=== PATIENT | male | born 1985 | race Two or more races ===

== ENCOUNTER 2020-04-27 10:20 | Emergency (ER) | payer SELFPAY ==
[~2020-04-27] VITALS: Ht 172.7 cm; Wt 817.4 kg
[~2020-04-27 10:20] MED LIST: ALBU0.0939 IH; ALBU2SYR86 PO
[2020-04-27 10:26] VITALS: BP 135/80
--- NOTE | 2020-04-27 10:36 | NUR ---
Patient taken to x-ray via wheelchair by tech.
--- NOTE | 2020-04-27 10:49 | NUR ---
Patient ambulated to bed 4. RN evaluating patient at bedside.
--- NOTE | 2020-04-27 10:50 | NUR ---
34 Y/O MALE FROM HOME C/O LT SHOULDER PAIN S/P FALLING OFF SKATEBOARD THIS MORNING. SLIGHT DEFORMITY NOTED TO LT SHOULDER. ABRASIONS TO LT ELBOW, SHOULDER, AND BACK NOTED. PT STATES HE IS UNABLE TO MOVE SHOULDER, + DISTAL PULSES. SKIN WARM, DRY, INTACT. SITTING UPRIGHT AWAKE AND ALERT. VSS MEDHX: ASTHMA
[2020-04-27] MEDS ORDERED: KETOROLAC 60 MG/2 ML VIAL IM ONE (10:55)
[2020-04-27] MEDS ORDERED: HYDROcodone/APAP 5/325 MG 1 TAB TAB PO ONE (10:55)
--- NOTE | 2020-04-27 11:11 | NUR ---
DR BARROS AT BEDSIDE EXAMINING PT
[2020-04-27] MEDS ORDERED: BACITRACIN OINT 500 UNITS/GM PKT TP ONE ×2 (11:13→11:15)
--- NOTE | 2020-04-27 11:20 | NUR ---
ophthalmology technician at bedside.
--- NOTE | 2020-04-27 11:54 | NUR ---
SLING PLACED TO LT SHOULDER, PT STATES DECREASE IN PAIN AT THIS TIME, 2/10 TOLERABLE PAIN
[2020-04-27 12:40] VITALS: BP 135/80
--- NOTE | 2020-04-27 12:40 | NUR ---
Patient discharged with v/s stable. Written and verbal after care instructions given and explained. Patient alert, oriented and verbalized understanding of instructions. Ambulatory with steady gait. All questions addressed prior to discharge. ID band removed. Patient advised to follow up with PMD. Rx of MOTRIN 600MG AND NORCO 5MG-325MG given. Patient educated on indication of medication including possible reaction and side effects. Opportunity to ask questions provided and answered.
== END 2020-04-27 12:40 | disposition home or self-care (01) ==
LOC: MED 10:20
DX: S43.102A Unspecified dislocation of left acromioclavicular joint, initial encounter (principal); S50.02XA Contusion of left elbow, initial encounter; I10 Essential (primary) hypertension; J45.909 Unspecified asthma, uncomplicated; F17.210 Nicotine dependence, cigarettes, uncomplicated; Z79.899 Other long term (current) drug therapy; V00.131A Fall from skateboard, initial encounter; Y93.89 Activity, other specified; Y92.89 Other specified places as the place of occurrence of the external cause; Y99.8 Other external cause status
CPT/HCPCS: 73030; 73080; 96372; 99284; J1885; Q0092

== ENCOUNTER 2020-06-09 19:14 | Emergency (ER) | payer SELFPAY ==
[~2020-06-09] VITALS: Ht 175.3 cm; Wt 73.9 kg
[2020-06-09 19:25] VITALS: BP 160/90
--- NOTE | 2020-06-09 19:29 | NUR ---
PT AMBULATED TO RESTROOM TO PROVIDE UA.
--- NOTE | 2020-06-09 19:30 | NUR ---
UA COLLECTED AND LEFT AT BEDSIDE. PT AMBULATED TO BED 4 WITH STEADY GAIT.
[2020-06-09] MEDS ORDERED: AZITHROMYCIN 250 MG TAB PO ONE (19:35)
[2020-06-09] MEDS ORDERED: NACL 0.9% 1,000 ML IV ONE (19:35)
--- NOTE | 2020-06-09 19:35 | NUR ---
Dr. Paulino examining patient.
[2020-06-09] MEDS ORDERED: cefTRIAXone 1,000 MG VIAL ONE (20:05)
[2020-06-09] MEDS ORDERED: cefTRIAXone 250 MG VIAL ONE (20:18)
[2020-06-09 20:26] LABS: APPEARANCE,URINE CLEAR (CLEAR); BILIRUBIN,URINE 1+ (NEGATIVE); BLOOD, URINE 3+ (NEGATIVE); LEUKOCYTE ESTERASE ,URINE 2+ (NEGATIVE); NITRITE, URINE NEGATIVE (NEGATIVE); UGLUCOSE NEGATIVE (NEGATIVE)
[2020-06-09 20:42] LABS: COLOR,URINE AMBER (YELLOW); WBC,URINE 20-60 /HPF (0-5)
[2020-06-09 20:43] LABS: RBC,URINE 50-80 /HPF (0-5)
--- NOTE | 2020-06-09 21:35 | NUR ---
IV removed, catheter intact and site benign. Applied folded 4x4 gauze and tape to stop bleeding.
[2020-06-09 21:37] VITALS: BP 160/90
--- NOTE | 2020-06-09 21:37 | NUR ---
Patient discharged with v/s stable. Written and verbal after care instructions given and explained. Patient alert, oriented and verbalized understanding of instructions. Ambulatory with steady gait. All questions addressed prior to discharge. ID band removed. Patient advised to follow up with PMD. Rx of PYRIDUM given. Patient educated on indication of medication including possible reaction and side effects. Opportunity to ask questions provided and answered.
== END 2020-06-09 21:37 | disposition home or self-care (01) ==
LOC: MED 19:14
DX: R30.0 Dysuria (principal); F17.210 Nicotine dependence, cigarettes, uncomplicated; I10 Essential (primary) hypertension; J45.909 Unspecified asthma, uncomplicated; Z79.899 Other long term (current) drug therapy
CPT/HCPCS: 36415; 81001; 87086; 96361; 96365; 99284; J0696; J7030

== ENCOUNTER 2021-12-15 18:18 | Emergency (ER) | payer OTHER ==
[~2021-12-15] VITALS: Ht 172.7 cm; Wt 82.6 kg
[2021-12-15 18:36] VITALS: BP 142/77
--- NOTE | 2021-12-15 18:55 | NUR ---
20G IV ESTABLISHED TO LEFT AC, LABS DRAWN AND HANDED TO EXTENSION EDUCATOR.
[2021-12-15] MEDS ORDERED: NACL 0.9% 1,000 ML IV ONE (19:00)
[2021-12-15 19:09] LABS: BASOPHILS % (AUTO) 0.5 % (0.0-2.0); EOSINOPHILS # (AUTO) 0.6 K/uL (0-0.4); EOSINOPHILS % (AUTO) 6.4 % (0.0-4.0); HEMATOCRIT 44.7 % (36-52); HEMOGLOBIN 15.4 g/dL (12.0-18.0); LYMPHOCYTES # (AUTO) 2.6 K/uL (2.0-11.5); LYMPHOCYTES % (AUTO) 29.3 % (20.5-51.1); MEAN CORPUSCULAR HEMOGLOBIN 29 pg (27-31); MEAN CORPUSCULAR HGB CONC 34 g/dL (33-37); MEAN CORPUSCULAR VOLUME 85.4 fL (80-94); MONOCYTES # (AUTO) 0.7 K/uL (0.8-1.0); MONOCYTES % (AUTO) 8.4 % (1.7-9.3); NEUTROPHILS # (AUTO) 4.9 K/uL (1.8-7.7); NEUTROPHILS % (AUTO) 55.4 % (42.2-75.2); PLATELET COUNT (AUTO) 387 K/uL (140-450); RED BLOOD CELL COUNT(AUTO) 5.23 MIL/uL (4.20-6.10); RED CELL DISTRIBUTION WIDTH 12.7 % (11.6-13.7); WHITE BLOOD COUNT (AUTO) 8.8 K/uL (4.8-10.8)
--- NOTE | 2021-12-15 19:10 | NUR ---
36/M PRESENTS TO ED WITH C/O LEFT LEG PAIN X1 WEEK. PATIENT STATES PAIN, REDNESS AND RASH DEVELOPED ON TOP OF HIS FOOT. STATING HE BEGAN HAVING REDNESS, TENDERNESS AND SWELLING TO HIS LOWER LEG, WORSENING IN THE PAST 3 DAYS. PATIENT REPORTS 5/10 PAIN THAT WORSENS WITH TOUCH. LEG IS RED, +3 EDEMA AND IS TENDER TO TOUCH. PATIENT DENIES FEVERS, CP, CHILLS, N/V/D AND SOB.
[2021-12-15 19:20] LABS: ANION GAP 13.2 (8-16); CARBON DIOXIDE 28.3 mmol/L (21-32); CREATININE 1.1 mg/dL (0.6-1.3); POTASSIUM 3.5 mmol/L (3.5-5.1)
[2021-12-15] MEDS ORDERED: LOTC TP (19:20)
[2021-12-15] MEDS ORDERED: CEPH-588 PO (19:20)
[2021-12-15 19:27] VITALS: BP 135/89
--- NOTE | 2021-12-15 19:33 | NUR ---
Pt report given to LIBERTAD RAY. Transfer of care at this time.
--- NOTE | 2021-12-15 20:30 | NUR ---
Patient discharged with v/s stable. Written and verbal after care instructions given and explained. Patient alert, oriented and verbalized understanding of instructions. Ambulatory with steady gait. All questions addressed prior to discharge. ID band removed. Patient advised to follow up with PMD. Rx of KELFEX & LOTRIMIN % given. Patient educated on indication of medication including possible reaction and side effects. Opportunity to ask questions provided and answered.
== END 2021-12-15 20:30 | disposition home or self-care (01) ==
LOC: MED 18:18
DX: B35.3 Tinea pedis (principal); L03.116 Cellulitis of left lower limb; J45.909 Unspecified asthma, uncomplicated; I10 Essential (primary) hypertension; Z79.899 Other long term (current) drug therapy
CPT/HCPCS: 36415; 80048; 85025; 86140; 93971; 96360; 99284; J7030; Q0092

== ENCOUNTER 2023-06-25 04:55 | Emergency (ER) | payer OTHER ==
[~2023-06-25] VITALS: Ht 175.3 cm; Wt 83.9 kg
[~2023-06-25 04:55] MED LIST changes: +CEPH-588 PO; +LOTC TP
[2023-06-25 04:56] VITALS: BP 154/90; PULSE 100; RESP 19; TEMP 98.1; O2SAT 95
[2023-06-25] MEDS ORDERED: ALBUTEROL SULFATE/IPRATROPIU 3 ML SOL IH ONE ×2 (05:15→06:00)
[2023-06-25] MEDS ORDERED: predniSONE 20 MG TAB PO ONE (05:15)
[2023-06-25 05:26] VITALS: PULSE 104; RESP 15; O2SAT 98
[2023-06-25 06:07] VITALS: PULSE 92; RESP 20; O2SAT 95
[2023-06-25] MEDS ORDERED: PRED20TA5 PO (06:14)
[2023-06-25] MEDS ORDERED: ALBU0.0912 INH (06:14)
[2023-06-25] MEDS ORDERED: FLUT1DSK2 IH (06:17)
[2023-06-25 06:20] VITALS: BP 154/90; PULSE 104; RESP 15; TEMP 98.1; O2SAT 98
== END 2023-06-25 06:20 | disposition home or self-care (01) ==
LOC: MED 04:55
DX: J45.901 Unspecified asthma with (acute) exacerbation (principal); R06.02 Shortness of breath; R06.2 Wheezing; R05.9 Cough, unspecified; Z79.899 Other long term (current) drug therapy
CPT/HCPCS: 94640; 99283; J7512

== ENCOUNTER 2023-11-13 23:35 | Emergency (ER) | payer OTHER ==
[~2023-11-13] VITALS: Ht 175.3 cm; Wt 87.1 kg
[~2023-11-13 23:35] MED LIST changes: +ALBU0.0912 INH; +FLUT1DSK2 IH; +PRED20TA5 PO
[2023-11-13 23:44] VITALS: BP 150/106; PULSE 94; RESP 16; TEMP 97.8; O2SAT 99
[2023-11-14 00:24] LABS: BASOPHILS # (AUTO) 0.1 K/uL (0.00-0.22); BASOPHILS % (AUTO) 0.6 % (0.0-2.0); EOSINOPHILS # (AUTO) 0.4 K/uL (0-0.4); EOSINOPHILS % (AUTO) 4.2 % (0.0-4.0); HEMATOCRIT 49.7 % (36-52); HEMOGLOBIN 16.9 g/dL (12.0-18.0); LYMPHOCYTES # (AUTO) 3.1 K/uL (2.0-11.5); LYMPHOCYTES % (AUTO) 31.5 % (20.5-51.1); MEAN CORPUSCULAR HEMOGLOBIN 29 pg (27-31); MEAN CORPUSCULAR HGB CONC 34 g/dL (33-37); MEAN CORPUSCULAR VOLUME 85.1 fL (80-94); MONOCYTES # (AUTO) 0.8 K/uL (0.8-1.0); MONOCYTES % (AUTO) 8.3 % (1.7-9.3); NEUTROPHILS # (AUTO) 5.5 K/uL (1.8-7.7); NEUTROPHILS % (AUTO) 55.4 % (42.2-75.2); PLATELET COUNT (AUTO) 370 K/uL (140-450); RED BLOOD CELL COUNT(AUTO) 5.84 MIL/uL (4.20-6.10); RED CELL DISTRIBUTION WIDTH 13.2 % (11.6-13.7)
[2023-11-14 00:41] LABS: ANION GAP 15.1 (8-16); CALCIUM 9.5 mg/dL (8.5-10.1); CARBON DIOXIDE 27.6 mmol/L (21-32); POTASSIUM 3.7 mmol/L (3.5-5.1)
[2023-11-14 00:44] LABS: ACETAMINOPHEN 28.7 ug/ml (10-30); ALANINE AMINOTRANSFERASE 59 U/L (12-78); ALBUMIN 3.9 g/dL (3.4-5.0); ALCOHOL, BLOOD < 3 mg/dL (<10); ALKALINE PHOSPHATASE 96 U/L (50-136); ASPARTATE AMINOTRANSFERASE 34 U/L (15-37); BILIRUBIN,DIRECT 0.1 mg/dL (0.0-0.3); SALICYLATE 22.7 mg/dL (2.8-20.0); TOTAL BILIRUBIN 0.2 mg/dL (0.0-1.0)
[2023-11-14 01:23] LABS: AMPHETAMINE, URINE POSITIVE ng/ml (NEG <=1000); BARBITURATE, URINE NEGATIVE ng/ml (NEG <=200); BENZODIAZEPINE, URINE NEGATIVE ng/mL (NEG <=200); CANNABINOID, URINE NEGATIVE ng/mL (NEG <=50); COCAINE, URINE NEGATIVE ng/mL (NEG <=300); OPIATE, URINE NEGATIVE ng/mL (NEG <=2000); PHENCYCLIDINE SCREEN,URINE NEGATIVE ng/mL (NEG <=25)
[2023-11-14 04:09] VITALS: O2SAT 99
[2023-11-14] MEDS ORDERED: NACL 0.9% 1,000 ML IV ONE (04:55)
[2023-11-14 06:15] VITALS: BP 128/77; PULSE 88; RESP 21
[2023-11-14 06:18] VITALS: O2SAT 97
[2023-11-14 07:04] LABS: ALBUMIN 3.3 g/dL (3.4-5.0); TOTAL BILIRUBIN 0.2 mg/dL (0.0-1.0); TOTAL PROTEIN, SERUM 7.9 g/dL (6.4-8.2)
[2023-11-14 07:07] LABS: SALICYLATE 28.8 mg/dL (2.8-20.0)
[2023-11-14 07:08] LABS: ACETAMINOPHEN 22.2 ug/ml (10-30)
[2023-11-14 07:15] LABS: BILIRUBIN,DIRECT 0.1 mg/dL (0.0-0.3)
== END 2023-11-14 08:10 | disposition home or self-care (01) ==
LOC: MED 23:35
DX: T43.614A Poisoning by caffeine, undetermined, initial encounter (principal); T39.1X4A Poisoning by 4-Aminophenol derivatives, undetermined, initial encounter; F43.20 Adjustment disorder, unspecified; J45.909 Unspecified asthma, uncomplicated; Z79.899 Other long term (current) drug therapy; Z79.2 Long term (current) use of antibiotics; Y92.89 Other specified places as the place of occurrence of the external cause
CPT/HCPCS: 36415; 80048; 80076; 80305; 85025; 96360; 99285; G0480; G0482; J7030

== ENCOUNTER 2023-11-18 01:18 | Emergency (ER) | payer OTHER ==
[~2023-11-18] VITALS: Ht 175.3 cm; Wt 87.1 kg
[2023-11-18 01:25] VITALS: BP 160/100; PULSE 114; RESP 28; TEMP 98.8; O2SAT 96
[2023-11-18] MEDS ORDERED: ALBUTEROL 0.083% 2.5 MG/3 ML NEBU INH ONE (01:45)
[2023-11-18] MEDS ORDERED: ALBUTEROL SULFATE/IPRATROPIU 3 ML SOL IH ONE ×2 (01:45→03:05)
[2023-11-18 01:50] VITALS: PULSE 124; RESP 32; O2SAT 97
[2023-11-18] MEDS ORDERED: NACL 0.9% 1,000 ML IV ONE (01:50)
[2023-11-18] MEDS ORDERED: methylPREDNISolone SS 125 MG in WATER STERILE 2 ML IV ONE (01:50)
[2023-11-18] MEDS ORDERED: methylPREDNISolone SS 125 MG/2 ML VIAL ONE (02:09)
[2023-11-18] MEDS ORDERED: ALBU0.0912 IH (03:03)
[2023-11-18] MEDS ORDERED: PRED20TA5 PO (03:03)
[2023-11-18 03:17] VITALS: PULSE 101; RESP 22; O2SAT 95
[2023-11-18 03:44] VITALS: BP 125/69; PULSE 101; RESP 22; TEMP 98; O2SAT 98
[2023-11-19] MEDS ORDERED: OSELTAMIVIR PHOSPHATE 75 MG CAP ONE (20:16)
== END 2023-11-18 03:44 | disposition home or self-care (01) ==
LOC: MED 01:18
DX: J45.901 Unspecified asthma with (acute) exacerbation (principal); J45.909 Unspecified asthma, uncomplicated; Z79.899 Other long term (current) drug therapy; F17.210 Nicotine dependence, cigarettes, uncomplicated; Z79.2 Long term (current) use of antibiotics
CPT/HCPCS: 71045; 94640; 96361; 96374; 99291; J2930; J7030; J7613; Q0092

== ENCOUNTER 2023-11-19 03:37 | Inpatient (IN) | payer OTHER ==
[~2023-11-19] VITALS: Ht 175.3 cm; Wt 90.7 kg
[2023-11-19] VITALS (19 sets, daily range): BP systolic 116–149; BP diastolic 73–98; PULSE 92–140; RESP 18–34; TEMP 97.2–98.2; O2SAT 91–100
[~2023-11-19 03:37] MED LIST changes: +ALBU0.0912 IH
[2023-11-19] MEDS ORDERED: methylPREDNISolone SS 125 MG/2 ML VIAL IVP ONE (03:45)
[2023-11-19] MEDS ORDERED: ALBUTEROL 0.083% 2.5 MG/3 ML NEBU INH ONE (03:45)
[2023-11-19] MEDS ORDERED: IPRATROPIUM 0.02% 0.5 MG/2.5 ML NEBU INH ONE ×3 (03:45→06:57)
[2023-11-19] MEDS ORDERED: DIAZEPAM PFS 10 MG/2 ML SYR IVP ONE (04:15)
[2023-11-19] MEDS ORDERED: NACL 0.9% 2,000 ML IV ONE (04:30)
[2023-11-19] MEDS ORDERED: cefTRIAXone 1,000 MG VIAL ONE (04:45)
[2023-11-19] MEDS ORDERED: ACETAMINOPHEN 325 MG TAB PO ONE (04:45)
[2023-11-19 05:07] LABS: BASOPHILS % (AUTO) 0.2 % (0.0-2.0); HEMOGLOBIN 14.6 g/dL (12.0-18.0); LYMPHOCYTES # (AUTO) 0.6 K/uL (2.0-11.5); MEAN CORPUSCULAR HEMOGLOBIN 29 pg (27-31); MEAN CORPUSCULAR HGB CONC 34 g/dL (33-37); MEAN CORPUSCULAR VOLUME 85.1 fL (80-94); MONOCYTES # (AUTO) 0.5 K/uL (0.8-1.0); MONOCYTES % (AUTO) 5.7 % (1.7-9.3); NEUTROPHILS # (AUTO) 8.2 K/uL (1.8-7.7); PLATELET COUNT (AUTO) 329 K/uL (140-450); RED BLOOD CELL COUNT(AUTO) 5.05 MIL/uL (4.20-6.10); WHITE BLOOD COUNT (AUTO) 9.3 K/uL (4.8-10.8)
[2023-11-19 05:20] LABS: ALBUMIN 3.4 g/dL (3.4-5.0); ANION GAP 13.7 (8-16); CALCIUM 8.4 mg/dL (8.5-10.1); CARBON DIOXIDE 26.4 mmol/L (21-32); CREATININE 0.9 mg/dL (0.6-1.3); TOTAL BILIRUBIN 0.4 mg/dL (0.0-1.0); TOTAL PROTEIN, SERUM 8.4 g/dL (6.4-8.2)
[2023-11-19 05:22] LABS: POTASSIUM 4.1 mmol/L (3.5-5.1)
[2023-11-19 05:26] LABS: NEUTROPHILS % (AUTO) 88.1 % (42.2-75.2)
[2023-11-19 05:37] LABS: LACTIC ACID 2.7 mmol/L (0.4-2.0)
[2023-11-19] MEDS ORDERED: LEVALBUTEROL 0.63 MG/3 ML NEBU INH ONE ×2 (06:55→06:57)
[2023-11-19] MEDS ORDERED: MAG SULF 2000 MG/WATER PREMIX 50 ML IV ONE (07:10)
[2023-11-19] MEDS ORDERED: guaiFENesin DM SUGAR FREE 100 MG/5 ML UDBTL PO PRN (07:10)
[2023-11-19] MEDS ORDERED: TERBUTALINE 1 MG/ML VIAL SUBQ ONE (07:15)
[2023-11-19] MEDS ORDERED: BUDESONIDE 0.25 MG/2 ML NEBU INH ONE (07:30)
[2023-11-19] MEDS ORDERED: DEXAMETHASONE 10 MG/ML VIAL IVP ONE (07:30)
[2023-11-19] MEDS ORDERED: LORazepam 2 MG/ML VIAL IVP ONE (07:35)
[2023-11-19] MEDS ORDERED: ALBUTEROL SULFATE/IPRATROPIU 3 ML SOL IH PRN (07:35)
[2023-11-19] MEDS ORDERED: ONDANSETRON 4 MG/2 ML VIAL IVP PRN (07:40)
[2023-11-19] MEDS ORDERED: MORPHINE SULFATE 2 MG/ML SYR IVP PRN (07:40)
[2023-11-19] MEDS ORDERED: ACETAMINOPHEN 325 MG TAB PO PRN (07:40)
[2023-11-19] MEDS ORDERED: ALBUTEROL 0.083% 2.5 MG/3 ML NEBU INH PRN (07:40)
[2023-11-19 07:42] LABS: BLOOD GAS BASE EXCESS -3.8 mmol/L (-2.0-2.0); BLOOD GAS PCO2 32.8 mmHg (35-45); BLOOD GAS PH 7.402 (7.35-7.45); BLOOD GAS PO2 157.4 mmHg (75-100)
[2023-11-19] MEDS ORDERED: ENOXAPARIN 40 MG/0.4 ML SYR SUBQ ONE (07:55)
[2023-11-19] MEDS: DEXT 5% /NACL 0.9% 1,000 ML IV SCH ×2 (08:00→20:07)
[2023-11-19 08:17] LABS: ALBUMIN 3.3 g/dL (3.4-5.0); BILIRUBIN,DIRECT 0.1 mg/dL (0.0-0.3); TOTAL BILIRUBIN 0.2 mg/dL (0.0-1.0); TOTAL PROTEIN, SERUM 7.9 g/dL (6.4-8.2)
[2023-11-19 08:32] LABS: FLU B ANTIGEN NEGATIVE (NEGATIVE)
[2023-11-19 08:33] LABS: FLU A ANTIGEN POSITIVE (NEGATIVE)
[2023-11-19] MEDS ORDERED: OSELTAMIVIR PHOSPHATE 75 MG CAP PO ONE (08:40)
[2023-11-19] MEDS: OSELTAMIVIR PHOSPHATE 75 MG CAP PO SCH ×2 (09:00→20:17)
[2023-11-19] MEDS: ENOXAPARIN 40 MG/0.4 ML SYR SUBQ SCH (09:21)
[2023-11-19] MEDS: AZITHROMYCIN 250 MG in DEXTROSE 5% 250 ML IV SCH (09:36)
[2023-11-19] MEDS: ALBUTEROL SULFATE/IPRATROPIU 3 ML SOL IH SCH ×4 (11:18→23:08)
[2023-11-19] MEDS: methylPREDNISolone SS 40 MG/ML VIAL IVP SCH ×2 (12:00→17:08)
[2023-11-19] MEDS ORDERED: methylPREDNISolone SS 40 MG in WATER STERILE 1 ML IM ONE (12:00)
[2023-11-19] MEDS ORDERED: methylPREDNISolone SS 40 MG in WATER STERILE 1 ML IV SCH (12:00)
[2023-11-19] MEDS ORDERED: IPRATROPIUM 0.02% 0.5 MG/2.5 ML NEBU INH SCH (13:00)
[2023-11-19] MEDS ORDERED: ALBUTEROL 0.083% 2.5 MG/3 ML NEBU INH SCH (13:00)
[2023-11-19 16:47] LABS: APPEARANCE,URINE CLEAR (CLEAR); BILIRUBIN,URINE NEGATIVE (NEGATIVE); BLOOD, URINE NEGATIVE (NEGATIVE); COLOR,URINE YELLOW (YELLOW); LEUKOCYTE ESTERASE ,URINE NEGATIVE (NEGATIVE); NITRITE, URINE NEGATIVE (NEGATIVE); PROTEIN,URINE NEGATIVE (NEGATIVE); UGLUCOSE NEGATIVE (NEGATIVE); UROBILINOGEN,URINE 0.2 EU/dL (0.2 - 1)
[2023-11-19 18:14] LABS: AMPHETAMINE, URINE POSITIVE ng/ml (NEG <=1000); BARBITURATE, URINE NEGATIVE ng/ml (NEG <=200); BENZODIAZEPINE, URINE POSITIVE ng/mL (NEG <=200); CANNABINOID, URINE NEGATIVE ng/mL (NEG <=50); COCAINE, URINE NEGATIVE ng/mL (NEG <=300); OPIATE, URINE NEGATIVE ng/mL (NEG <=2000); PHENCYCLIDINE SCREEN,URINE NEGATIVE ng/mL (NEG <=25)
[2023-11-20] VITALS (17 sets, daily range): BP systolic 118–145; BP diastolic 64–84; PULSE 71–123; RESP 16–26; TEMP 97–98.6; O2SAT 95–100
[2023-11-20] MEDS: methylPREDNISolone SS 40 MG/ML VIAL IVP SCH ×4 (00:20→18:00)
[2023-11-20] MEDS: ALBUTEROL SULFATE/IPRATROPIU 3 ML SOL IH SCH ×5 (03:26→18:57)
[2023-11-20 06:45] LABS: ALBUMIN 3.1 g/dL (3.4-5.0); ANION GAP 11.7 (8-16); CALCIUM 8.6 mg/dL (8.5-10.1); CARBON DIOXIDE 28.5 mmol/L (21-32); CREATININE 0.7 mg/dL (0.6-1.3); MAGNESIUM 2.1 mg/dL (1.8-2.4); POTASSIUM 4.2 mmol/L (3.5-5.1); TOTAL BILIRUBIN 0.2 mg/dL (0.0-1.0); TOTAL PROTEIN, SERUM 7.9 g/dL (6.4-8.2)
[2023-11-20] MEDS: OSELTAMIVIR PHOSPHATE 75 MG CAP PO SCH (08:07)
[2023-11-20] MEDS: ENOXAPARIN 40 MG/0.4 ML SYR SUBQ SCH (08:08)
[2023-11-20] MEDS: AZITHROMYCIN 250 MG in DEXTROSE 5% 250 ML IV SCH (08:10)
[2023-11-20 08:56] LABS: BASOPHILS % (AUTO) 0.1 % (0.0-2.0); HEMATOCRIT 41.8 % (36-52); LYMPHOCYTES # (AUTO) 0.9 K/uL (2.0-11.5); LYMPHOCYTES % (AUTO) 7.6 % (20.5-51.1); MEAN CORPUSCULAR HEMOGLOBIN 29 pg (27-31); MEAN CORPUSCULAR HGB CONC 33 g/dL (33-37); MEAN CORPUSCULAR VOLUME 85.9 fL (80-94); MONOCYTES # (AUTO) 0.9 K/uL (0.8-1.0); MONOCYTES % (AUTO) 7.2 % (1.7-9.3); NEUTROPHILS # (AUTO) 10.5 K/uL (1.8-7.7); NEUTROPHILS % (AUTO) 85.1 % (42.2-75.2); PLATELET COUNT (AUTO) 379 K/uL (140-450); RED BLOOD CELL COUNT(AUTO) 4.87 MIL/uL (4.20-6.10); RED CELL DISTRIBUTION WIDTH 13.5 % (11.6-13.7); WHITE BLOOD COUNT (AUTO) 12.3 K/uL (4.8-10.8)
[2023-11-20] MEDS: DEXT 5% /NACL 0.9% 1,000 ML IV SCH (11:05)
== END 2023-11-20 22:07 | disposition left against medical advice (07) | DRG 133 ==
LOC: MED 03:37 → MTU 07:46 → MIC 15:39 → MTU 11-20 15:30
PROVIDERS: ADMIT Internal Medicine; ATTEND Internal Medicine
PROC: 5A09357 Assistance with Respiratory Ventilation, Less than 24 Consecutive Hours, Continuous Positive Airway Pressure (ICD-10-PCS; principal; 2023-11-19)
DX: J96.00 Acute respiratory failure, unspecified whether with hypoxia or hypercapnia (principal); J45.901 Unspecified asthma with (acute) exacerbation; J45.902 Unspecified asthma with status asthmaticus; R65.10 Systemic inflammatory response syndrome (SIRS) of non-infectious origin without acute organ dysfunction; F15.10 Other stimulant abuse, uncomplicated; J10.1 Influenza due to other identified influenza virus with other respiratory manifestations; F17.210 Nicotine dependence, cigarettes, uncomplicated
CPT/HCPCS: 36415; 36600; 71045; 80053; 80076; 80305; 81003; 82248; 82803; 83605; 83735; 84484; 85025; 85379; 87040; 87081; 87086; 87420; 93005; 94640; 94660; 94761; 96361; 96365; 96372; 96375; 99291; 99292; J0456; J0696; J1100; J1650; J2060; J2920; J2930; J3105; J3360; J3475; J7060; J7613; J7614; J7644; Q0092

== ENCOUNTER 2024-09-03 04:33 | Inpatient (IN) | payer MEDICAID ==
[~2024-09-03] VITALS: Ht 175.3 cm; Wt 86.2 kg
[2024-09-03] VITALS (16 sets, daily range): BP systolic 115–140; BP diastolic 66–87; PULSE 80–128; RESP 18–32; TEMP 97.1–98.6; O2SAT 89–98
[2024-09-03] MEDS: ALBUTEROL SULFATE/IPRATROPIU 3 ML SOL IH ONE ×3 (04:46→05:42)
[2024-09-03] MEDS: methylPREDNISolone SS 125 MG/2 ML VIAL IM ONE (04:51)
[2024-09-03 06:31] LABS: BASOPHILS % (AUTO) 0.5 % (0.0-2.0); EOSINOPHILS # (AUTO) 0.5 K/uL (0-0.4); EOSINOPHILS % (AUTO) 4.9 % (0.0-4.0); HEMOGLOBIN 15.5 g/dL (12.0-18.0); LYMPHOCYTES # (AUTO) 1.3 K/uL (2.0-11.5); LYMPHOCYTES % (AUTO) 13.2 % (20.5-51.1); MEAN CORPUSCULAR HEMOGLOBIN 29 pg (27-31); MEAN CORPUSCULAR HGB CONC 34 g/dL (33-37); MEAN CORPUSCULAR VOLUME 85.6 fL (80-94); MONOCYTES # (AUTO) 0.5 K/uL (0.8-1.0); MONOCYTES % (AUTO) 4.7 % (1.7-9.3); NEUTROPHILS # (AUTO) 7.8 K/uL (1.8-7.7); NEUTROPHILS % (AUTO) 76.7 % (42.2-75.2); PLATELET COUNT (AUTO) 338 K/uL (140-450); RED BLOOD CELL COUNT(AUTO) 5.37 MIL/uL (4.20-6.10); RED CELL DISTRIBUTION WIDTH 13.1 % (11.6-13.7); WHITE BLOOD COUNT (AUTO) 10.1 K/uL (4.8-10.8)
[2024-09-03 06:52] LABS: ANION GAP 13.8 (8-16); CALCIUM 8.3 mg/dL (8.5-10.1); CARBON DIOXIDE 25.7 mmol/L (21-32); CREATININE 0.8 mg/dL (0.6-1.3); POTASSIUM 3.5 mmol/L (3.5-5.1)
[2024-09-03] MEDS: MAG SULF 2000 MG/WATER PREMIX 50 ML IV ONE (06:55)
[2024-09-03 06:56] LABS: FLU A ANTIGEN negative (NEGATIVE); FLU B ANTIGEN NEGATIVE (NEGATIVE)
[2024-09-03] MEDS: ALBUTEROL 0.083% 2.5 MG/3 ML NEBU INH ONE (06:59)
[2024-09-03] MEDS ORDERED: BENZONATATE 100 MG CAPLF PO PRN (09:10)
[2024-09-03] MEDS: methylPREDNISolone SS 40 MG/ML VIAL IVP SCH (11:13)
[2024-09-03] MEDS: AZITHROMYCIN 500 MG in DEXTROSE 5% 250 ML IV SCH (11:13)
[2024-09-03] MEDS ORDERED: methylPREDNISolone SS 40 MG in WATER STERILE 1 ML IV SCH (12:00)
[2024-09-03] MEDS: ALBUTEROL SULFATE/IPRATROPIU 3 ML SOL IH SCH (13:25)
[2024-09-03] MEDS: ALBUTEROL SULFATE/IPRATROPIU 3 ML SOL IH PRN (16:37)
[2024-09-04] VITALS (8 sets, daily range): BP systolic 147–148; BP diastolic 66–84; PULSE 94–125; RESP 18–24; TEMP 97.8–98.5; O2SAT 91–100
[2024-09-04 06:36] LABS: BASOPHILS % (AUTO) 0.1 % (0.0-2.0); HEMATOCRIT 47.4 % (36-52); HEMOGLOBIN 15.5 g/dL (12.0-18.0); LYMPHOCYTES # (AUTO) 0.8 K/uL (2.0-11.5); LYMPHOCYTES % (AUTO) 4.4 % (20.5-51.1); MEAN CORPUSCULAR HEMOGLOBIN 28 pg (27-31); MEAN CORPUSCULAR HGB CONC 33 g/dL (33-37); MEAN CORPUSCULAR VOLUME 86.5 fL (80-94); MONOCYTES # (AUTO) 0.6 K/uL (0.8-1.0); MONOCYTES % (AUTO) 3.1 % (1.7-9.3); NEUTROPHILS # (AUTO) 17.2 K/uL (1.8-7.7); NEUTROPHILS % (AUTO) 92.4 % (42.2-75.2); PLATELET COUNT (AUTO) 382 K/uL (140-450); RED BLOOD CELL COUNT(AUTO) 5.48 MIL/uL (4.20-6.10); RED CELL DISTRIBUTION WIDTH 13.2 % (11.6-13.7); WHITE BLOOD COUNT (AUTO) 18.6 K/uL (4.8-10.8)
[2024-09-04 06:44] LABS: ANION GAP 13.7 (8-16); CALCIUM 9.1 mg/dL (8.5-10.1); CARBON DIOXIDE 27.8 mmol/L (21-32); CREATININE 0.8 mg/dL (0.6-1.3); POTASSIUM 4.5 mmol/L (3.5-5.1)
[2024-09-04] MEDS ORDERED: VANCOMYCIN PER PHARMACY MC PRN (11:15)
[2024-09-04] MEDS: VANCOMYCIN 1,000 MG in DEXTROSE 5% 250 ML IV SCH (13:06)
[2024-09-04 14:43] LABS: AMPHETAMINE, URINE POSITIVE ng/ml (NEG <=1000); BARBITURATE, URINE NEGATIVE ng/ml (NEG <=200); BENZODIAZEPINE, URINE NEGATIVE ng/mL (NEG <=200); CANNABINOID, URINE NEGATIVE ng/mL (NEG <=50); COCAINE, URINE NEGATIVE ng/mL (NEG <=300); OPIATE, URINE NEGATIVE ng/mL (NEG <=2000); PHENCYCLIDINE SCREEN,URINE POSITIVE ng/mL (NEG <=25)
[2024-09-04] MEDS: methylPREDNISolone SS 40 MG/ML VIAL IVP SCH (20:29)
[2024-09-05 00:14] VITALS: PULSE 122; RESP 19; O2SAT 94
[2024-09-05 06:51] LABS: BASOPHILS % (AUTO) 0.1 % (0.0-2.0); HEMATOCRIT 44.6 % (36-52); HEMOGLOBIN 14.8 g/dL (12.0-18.0); LYMPHOCYTES # (AUTO) 1.3 K/uL (2.0-11.5); LYMPHOCYTES % (AUTO) 8.1 % (20.5-51.1); MEAN CORPUSCULAR HEMOGLOBIN 29 pg (27-31); MEAN CORPUSCULAR HGB CONC 33 g/dL (33-37); MEAN CORPUSCULAR VOLUME 86.1 fL (80-94); MONOCYTES # (AUTO) 0.9 K/uL (0.8-1.0); MONOCYTES % (AUTO) 5.4 % (1.7-9.3); NEUTROPHILS # (AUTO) 13.8 K/uL (1.8-7.7); NEUTROPHILS % (AUTO) 86.4 % (42.2-75.2); PLATELET COUNT (AUTO) 355 K/uL (140-450); RED BLOOD CELL COUNT(AUTO) 5.18 MIL/uL (4.20-6.10); RED CELL DISTRIBUTION WIDTH 13.2 % (11.6-13.7)
[2024-09-05 06:58] LABS: ANION GAP 13.4 (8-16); CALCIUM 8.4 mg/dL (8.5-10.1); CARBON DIOXIDE 29.3 mmol/L (21-32); CREATININE 0.8 mg/dL (0.6-1.3); POTASSIUM 3.7 mmol/L (3.5-5.1)
[2024-09-05 07:31] VITALS: PULSE 96; RESP 20; O2SAT 98
[2024-09-05 08:00] VITALS: BP 134/71; PULSE 89; RESP 18; TEMP 98.3; O2SAT 100; O2SAT 96
[2024-09-05] MEDS ORDERED: CLIN150C1 PO (10:12)
[2024-09-05] MEDS ORDERED: METH4TAB1 PO (10:12)
[2024-09-05] MEDS ORDERED: AZIT250T4 PO (10:12)
[2024-09-05] MEDS ORDERED: FLUT1DSK2 IH (10:12)
[2024-09-05] MEDS ORDERED: ALBU117P INH (10:12)
[2024-09-05 10:29] VITALS: BP 134/71; PULSE 89; RESP 18; TEMP 98.3
[2024-09-05 12:19] VITALS: PULSE 102; RESP 21; O2SAT 94
== END 2024-09-05 12:50 | disposition home or self-care (01) | DRG 383 ==
LOC: MED 04:33 → MTU 08:36
PROVIDERS: ADMIT Student in an Organized Health Care Education/Training Program; ATTEND Student in an Organized Health Care Education/Training Program
DX: L03.116 Cellulitis of left lower limb (principal); J96.01 Acute respiratory failure with hypoxia; R65.10 Systemic inflammatory response syndrome (SIRS) of non-infectious origin without acute organ dysfunction; J45.901 Unspecified asthma with (acute) exacerbation; Z20.822 Contact with and (suspected) exposure to COVID-19; Z79.51 Long term (current) use of inhaled steroids; Z79.899 Other long term (current) drug therapy
CPT/HCPCS: 36415; 71045; 73590; 76881; 80048; 80202; 80305; 85025; 85379; 87081; 93970; 94640; 96365; 96366; 96372; 99291; J0456; J0696; J2919; J3370; J3475; J7060; J7613; Q0092